=== PATIENT | female | born 1960 | race Caucasian/White ===

== ENCOUNTER 2017-06-02 21:25 | Emergency (ER) | payer MEDICAID ==
[~2017-06-02] VITALS: Ht 165.1 cm; Wt 55.7 kg
[2017-06-02 21:30] VITALS: BP 155/100
== END 2017-06-02 23:04 | disposition home or self-care (01) ==
LOC: ER 21:26
DX: Z02.89 Encounter for other administrative examinations (principal); F15.10 Other stimulant abuse, uncomplicated; F17.200 Nicotine dependence, unspecified, uncomplicated; Z85.3 Personal history of malignant neoplasm of breast; Z90.89 Acquired absence of other organs
CPT/HCPCS: 99281